=== PATIENT | female | born 2000 | race African-American/Black ===

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

== ENCOUNTER 2019-04-10 14:55 | Emergency (ER) | payer MEDICAID ==
[~2019-04-10] VITALS: Ht 170.2 cm; Wt 72.6 kg
[~2019-04-10 14:55] MED LIST changes: +ALBUTEROL SULF8.5 GM INH; +NAPROXEN500 M2 ORAL; +PROMETHAZINE-C118 M1 ORAL; +ZYRTEC-D TABLE1 EACH ORAL
[2019-04-10 15:03] VITALS: BP 129/80
--- NOTE | 2019-04-10 15:40 | Emergency Room Report ---
History of Present Illness General Chief Complaint: Upper Respiratory Illness Source: Patient Present Illness HPI 18-year-old female with no symptom past medical history here complaining of 3 days of sore throat rating a 10 out of 10 and cough and congestion without fever and headache. Has not taken medication for symptom relief. Complains of left earring being stuck in her ear times several weeks. Patient reports that she does not have a primary care doctor and does not want to follow-up with one. Denies chest pain, shortness of breath, palpitation, no other associated symptoms. Up-to-date with immunization Allergies: Coded Allergies: No Known Allergies (Unverified , 07/16/15) Patient History Past Medical History: see triage record Past Surgical History: unable to obtain Pertinent Family History: none Last Menstrual Period: currently on it Now: No Immunizations: UTD Reviewed Nursing Documentation: PMH: Agreed; PSxH: Agreed Nursing Documentation-PM Past Medical History: No History, Except For Hx Asthma: Yes Review of Systems All Other Systems: negative except mentioned in HPI Physical Exam Vital Signs Date Time Temp Pulse Resp B/P (MAP) Pulse Ox O2 Delivery O2 Flow Rate FiO2 04/10/19 15:03 99.0 88 18 129/80 (96) 98 Sp02 EP Interpretation: reviewed, normal General Appearance: no apparent distress, alert, GCS 15, non-toxic Head: normocephalic, atraumatic Eyes: bilateral eye normal inspection, bilateral eye PERRL ENT: hearing grossly normal, no angioedema, normal voice, TMs + canals normal, tonsillar swelling, pharyngeal erythema, tonsillar exudate Neck: full range of motion, supple/symm/no masses Respiratory: chest non-tender, lungs clear, normal breath sounds, no rhonchi, no wheezing, speaking full sentences Cardiovascular #1: regular rate, rhythm, no edema, no murmur, normal capillary refill Gastrointestinal: normal bowel sounds, non tender, soft, non-distended, no guarding, no rebound Rectal: deferred Genitourinary: no CVA tenderness Musculoskeletal: back normal, digits/nails normal, gait/station normal, normal range of motion, non-tender, no calf tenderness Neurologic: normal inspection, alert, oriented x3 Psychiatric: normal inspection, judgement/insight normal Skin: other - earing stuck in ear but not infected Lymphatic: adenopathy - ant cervical Medical Decision Making PA Attestation Diagnosis and treatment plans were reviewed and discussed with my supervising physician Dr. Bowser Diagnostic Impression: Primary Impression: Strep pharyngitis Additional Impression: Embedded earring of left ear ER Course 18-year-old female with no symptom past medical history here complaining of 3 days of sore throat rating a 10 out of 10 and cough and congestion without fever and headache. Has not taken medication for symptom relief. Complains of left earring being stuck in her ear times several weeks. Patient reports that she does not have a primary care doctor and does not want to follow-up with one. Denies chest pain, shortness of breath, palpitation, no other associated symptoms. Up-to-date with immunization Ddx considered but are not limited to: strep pharyngitis, URI, tonsillitis, peritonsillar abscess, influneza Vital signs: are WNL, pt. is afebrile H&PE are most consistent with: strep pharyngitis, embedded earing left ear lobe ORDERS: augmentin to cover both infections, motrin ED INTERVENTIONS: None required at this time. DISCHARGE: At this time pt. is stable for d/c to home. Will provide printed patient care instructions, and any necessary prescriptions. Care plan and follow up instructions have been discussed with the patient prior to discharge. At this time unable to take the back of the earring out as this is not acute and patient to follow-up with primary care this has been there for the past several weeks. Also take any [id number] cough medication for symptom relief. Last Vital Signs Date Time Temp Pulse Resp B/P (MAP) Pulse Ox O2 Delivery O2 Flow Rate FiO2 04/10/19 15:03 99.0 88 18 129/80 (96) 98 Disposition: HOME, SELF-CARE Condition: Stable Scripts Ibuprofen* (MOTRIN*) 600 Mg Tablet 600 MG ORAL Q6H PRN for For Pain, #30 TAB Prov: Wendy Gardner 04/10/19 Amoxicillin/Potassium Clav 875-125* (AUGMENTIN 875-125 TABLET*) 1 Each Tablet 1 TAB ORAL TWICE A DAY for 10 Days, #20 TAB Prov: Wendy Gardner 04/10/19 Patient Instructions: Pharyngitis, [id number] Additional Instructions: Take medication as directed, follow-up with the primary care provider, if worsening symptoms return to the emergency room at this time your earring has been stuck in your left earlobe for several days and to be followed up with primary care provider. As this is not an emergent condition. Wendy Gardner Apr 10, 2019 15:40
[2019-04-10] MEDS ORDERED: IBUPROFEN600 MG ORAL (15:41)
[2019-04-10] MEDS ORDERED: AUGMENTIN 875-1 EAC1 ORAL (15:41)
--- NOTE | 2019-04-10 16:53 | NUR ---
discharged home with instruction and rx follow up with pmd
== END 2019-04-10 16:00 | disposition home or self-care (01) ==
LOC: EMR 15:39
DX: J02.0 Streptococcal pharyngitis (principal); Z18.89 Other specified retained foreign body fragments
CPT/HCPCS: 99282